=== PATIENT | male | born 1990 | race Hispanic/Latino ===

== ENCOUNTER 2019-05-02 19:14 | Emergency (ER) | payer SELFPAY ==
[2019-05-02] MEDS ORDERED: Lidocaine 1% (PF) 30 ML VIAL ONE (21:37)
== END 2019-05-02 23:00 | disposition home or self-care (01) ==
LOC: ERS 19:14
DX: L60.0 Ingrowing nail (principal); E78.5 Hyperlipidemia, unspecified
CPT/HCPCS: 11750; J2001